=== PATIENT | male | born 1965 | race Caucasian/White ===

== ENCOUNTER 2022-02-11 08:05 | Outpatient (CLI) | payer OTHER, SELFPAY ==
[2022-02-11 14:24] LABS: Chloride* 102 mmol/L (96-114); Potassium* 3.9 mmol/L (3.6-5.1); Sodium* 139 mmol/L (135-149)
[2022-02-11 14:26] LABS: Cholesterol* 127 mg/dL (90-199); Creatinine* 0.8 mg/dL (0.5-1.5); Estimated Glomerular Filt Rate 105 ml/min
[2022-02-11 14:27] LABS: Blood Urea Nitrogen* 13 mg/dL (7-30); Calcium* 9.2 mg/dL (8.4-10.6); Carbon Dioxide* 25 mmol/L (20-32); Glucose* 95 mg/dL (60-115); HDL Cholesterol* 25 mg/dL (>=40); LDL Cholesterol Calculated 70 mg/dL (<100); Triglycerides* 159 mg/dL (40-149)
[2022-02-11 14:58] LABS: PSA Screen* 0.41 ng/mL (0.10-4.00)
== END 2022-02-11 08:06 | disposition home or self-care (01) ==
PROVIDERS: PCP Family Medicine; Visit Provider Family Medicine
DX: E78.5 Hyperlipidemia, unspecified (principal); I10 Essential (primary) hypertension; Z12.5 Encounter for screening for malignant neoplasm of prostate; E66.9 Obesity, unspecified
CPT/HCPCS: 80048; 80061; 84153

== ENCOUNTER 2023-03-10 08:57 | Outpatient (CLI) | payer OTHER, SELFPAY ==
--- NOTE | 2023-03-10 10:03 | W.ANESCHARGE ---
Anesthesia Charges Start Date/Time Anesthesia Start Date: 03/10/23 Anesthesia Start Time: 09:36 Stop Date/Time Anesthesia Stop Date: 03/10/23 Anesthesia Stop Time: 10:00
--- NOTE | 2023-03-10 10:11 | W.ANESCHARGE ---
Anesthesia Charges Start Date/Time Anesthesia Start Date: 03/10/23 Anesthesia Start Time: 09:36 Stop Date/Time Anesthesia Stop Date: 03/10/23 Anesthesia Stop Time: 10:00
== END 2023-03-10 08:58 | disposition home or self-care (01) ==
LOC: OP CLINIC 08:58
PROVIDERS: PCP Family Medicine; Visit Provider Internal Medicine
DX: Z12.11 Encounter for screening for malignant neoplasm of colon (principal); K64.8 Other hemorrhoids; Z86.010 Personal history of colon polyps
CPT/HCPCS: 00811; 00812; 45378; J2704

== ENCOUNTER 2023-03-24 08:39 | Outpatient (CLI) | payer OTHER, SELFPAY | END 2023-03-24 08:40 | disposition home or self-care (01) | PROVIDERS: PCP Family Medicine; Visit Provider Family Medicine | DX: Z00.00 Encounter for general adult medical examination without abnormal findings (principal); I10 Essential (primary) hypertension; E78.5 Hyperlipidemia, unspecified; E13.9 Other specified diabetes mellitus without complications | CPT/HCPCS: 80048; 80061 ==

== ENCOUNTER 2024-03-20 08:28 | Outpatient (CLI) | payer OTHER, SELFPAY | END 2024-03-20 08:29 | disposition home or self-care (01) | PROVIDERS: PCP Family Medicine; Visit Provider Family Medicine | DX: E78.2 Mixed hyperlipidemia (principal); I10 Essential (primary) hypertension; Z12.5 Encounter for screening for malignant neoplasm of prostate | CPT/HCPCS: 80048; 80061; G0103 ==

== ENCOUNTER 2025-04-04 10:13 | Outpatient (CLI) | payer OTHER, SELFPAY | END 2025-04-04 10:14 | disposition home or self-care (01) | PROVIDERS: PCP Family Medicine; Visit Provider Family Medicine | DX: I10 Essential (primary) hypertension (principal); E78.2 Mixed hyperlipidemia | CPT/HCPCS: 80048; 80061 ==